=== PATIENT | male | born 1975 | race Caucasian/White ===

== ENCOUNTER 2017-07-03 11:02 | Emergency (ER) | payer MEDICARE, MEDICAID ==
[2017-07-03] MEDS ORDERED: Metoclopramide IV* 5 MG/ML 2 ML VIAL IV ONE (12:25)
[2017-07-03] MEDS ORDERED: Morphine INJ* 4 MG/ML 1 ML SYRINGE (NEW SYRINGE VERSION) IV ONE (12:25)
[2017-07-03] MEDS ORDERED: NS 0.9% 1000 ML* 1,000 ML IV ONE (12:26)
[2017-07-03 12:47] LABS: ABS Basophils 0.1 10^3/ul (0-0.2); ABS Eosinophils 0.1 10^3/ul (0-0.6); ABS Lymphocytes 1.5 10^3/ul (1.0-4.8); ABS Monocytes 0.6 10^3/ul (0-0.8); ABS Neutrophils 15.2 10^3/ul (1.5-7.7); ABS Nucleated RBC 0 10^3/ul; Eosinophil % 0.5 % (0-6); Hematocrit 40 % (42-52); Hemoglobin 13.7 g/dl (14.0-18.0); Lymphocyte % 8.5 % (25-47); Mean Corpuscular HGB Conc 35 g/dl (31-36); Mean Corpuscular Hemoglobin 31 pg (27-31); Mean Corpuscular Volume 89 fL (80-94); Mean Platelet Volume 8 um3 (7.4-10.4); Nucleated Red Blood Cells % 0; Platelet Count 272 10^3/ul (150-450); Red Blood Count 4.43 10^6/ul (4.0-5.4); Red Cell Distribution Width 14 % (10.5-15); White Blood Count 17.6 10^3/ul (3.5-10.8)
[2017-07-03 12:56] LABS: INR 0.88 (0.77-1.02)
[2017-07-03 13:03] LABS: EGFR Non-African American 83.5 (>60)
[2017-07-03] MEDS ORDERED: Magnesium Sulfate 1 GM IV* 1 GM/100 ML BAG IV ONE (13:21)
--- NOTE | 2017-07-03 13:31 | RAD ---
Abdomen pain. Flat and upright views of the abdomen demonstrates no free air. No dilated loops of bowel are noted. There is air in the stomach and colon. No evidence of renal or ureteral calculi is identified. IMPRESSION: No free air or obstruction is noted.
[2017-07-03] MEDS ORDERED: Iohexol 300* (CONTRAST) 10 ML SDV IV ONE (13:53)
[2017-07-03] MEDS ORDERED: LORazepam INJ* 2 MG/ML 1 ML VIAL IV PUSH ONE (14:02)
[2017-07-03 14:24] LABS: Urine Appearance Clear; Urine Blood 1+ (Negative); Urine Color Yellow; Urine Ketones 1+ (Negative); Urine Protein 1+(30 mg/dL) (Negative); Urine Specific Gravity 1.033 (1.010-1.030); Urine Urobilinogen Negative (Negative)
[2017-07-03] MEDS ORDERED: NS 0.9% 1000 ML*IV.FLUID IV ONE (14:41)
[2017-07-03] MEDS ORDERED: Iodixanol* (CONTRAST) 320 MG/ML 100 ML SDV IV ONE (15:11)
--- NOTE | 2017-07-03 15:38 | RAD ---
Indication: Left lower quadrant pain. Contrast: Administered 100.1 ml of VISAPAQUE 320 mg/ml CT of the abdomen and pelvis was performed after oral and IV contrast administration. Coronal and sagittal reconstructed images were obtained. Lung bases demonstrate no pleural fluid, nodules or masses. Heart demonstrates no pericardial effusion. The liver is normal in size. It is diffusely decreased in density consistent with hepatic steatosis. No focal lesions or intrahepatic ductal dilatation is noted. The gallbladder demonstrates no calcified gallstones, pericholecystic fluid or wall thickening. The common duct is not dilated. The pancreas demonstrates no mass or pancreatic duct dilatation. The spleen is normal in size. No adrenal lesions are noted. The kidneys demonstrates no hydronephrosis and demonstrate symmetric nephrograms. No retroperitoneal lymphadenopathy is noted. Celiac axis and superior mesenteric artery is unremarkable. No retroperitoneal adenopathy is noted. No dilated loops of bowel are noted. No evidence of bowel obstruction is noted with contrast in the right colon. Appendix is normal. No pelvic adenopathy is noted. The descending colon demonstrates wall thickening with infiltration of fat and reticulation of fat at the junction between the sigmoid colon and descending colon. Findings are consistent with diverticulitis. No definite diverticular abscess is noted. The urinary bladder is distended. The prostate and seminal vesicles are unremarkable. IMPRESSION: Findings consistent with diverticulitis. No evidence of peridiverticular abscess is noted. Normal appendix.
--- NOTE | 2017-07-03 15:43 | RAD ---
Indication: Abdominal pain. Single frontal view of the chest performed at 1500 hours was reviewed. No prior study is available for comparison. No mediastinal shift is noted. Heart is of normal size and configuration. Lung jang appear clear. IMPRESSION: NO ACTIVE CARDIOPULMONARY DISEASE IS NOTED.
[2017-07-03] MEDS ORDERED: metroNIDAZOLE IV 500 MG/100ML* 500 MG/100 ML BAG IVPB ONE (15:58)
[2017-07-03] MEDS ORDERED: Ciprofloxacin 400MG IVPREMIX(* 400 MG/200 ML BAG IVPB ONE (15:58)
[2017-07-03 19:24] VITALS: BP 152/92
--- NOTE | 2017-07-03 23:19 | ED ---
Yonny Pascual Stephanie, scribed for Cheri Littlejohn MD on 07/03/17 at 1228 . Abdominal Pain/Male - HPI Summary HPI Summary: The pt is a 42 y/o M presenting to the ED with c/o abd pain that began today at 07:00. The abd pain is described as a twisting pain and is located on the LLQ. Symptoms include N/V. The pt states he woke up this morning sick. He did not take his diabetes medicine this morning. The pt states he takes glipizide. - History of Current Complaint Chief Complaint: EDAbdPain Stated Complaint: ABD PAIN Time Seen by Provider: 07/03/17 12:05 Hx Obtained From: Patient Onset/Duration: Sudden Onset, Lasting Hours - 5, Still Present Timing: Constant Severity Currently: Severe Pain Intensity: 9 Pain Scale Used: 0-10 Numeric Location: Discrete At: LLQ Radiates: No Character: Sharp Aggravating Factor(s): Nothing Alleviating Factor(s): Nothing Associated Signs And Symptoms: Positive: Nausea, Vomiting - Allergies/Home Medications Allergies/Adverse Reactions: Allergies Allergy/AdvReac Type Severity Reaction Status Date / Time No Known Allergies Allergy Verified 07/03/17 11:10 PMH/Surg Hx/FS Hx/Imm Hx Endocrine/Hematology History: Reports: Hx Diabetes GI History: Reports: Other GI Disorders - gastroparesis - Surgical History Surgery Procedure, Year, and Place: NONE Infectious Disease History: No Infectious Disease History: Denies: Traveled Outside the [place] in Last 30 Days - Family History Known Family History: Positive: Unknown - The pt denies any fhx. - Social History Occupation: Unemployed Lives: Alone Alcohol Use: None Substance Use Type: Reports: Marijuana Substance Use Comment - Amount & Last Used: few times a week Smoking Status (MU): Never Smoked Tobacco Review of Systems Negative: Fever Positive: Abdominal Pain, Vomiting, Nausea All Other Systems Reviewed And Are Negative: Yes Physical Exam - Summary Physical Exam Summary: Appearance: Ill-appearing, : thrashing in pain, lying uncomfortable on the stretcher. Well-nourished, no fruity odor Skin: Warm, color reflects adequate perfusion Head: Normal Head/Face inspection Eyes: Conjunctiva clear ENT: dry oral mucosa Neck: Supple, no nodes, no JVD. Respiratory: Lungs clear, Normal breath sounds, no respiratory distress Cardio: RRR, No murmur, pulses normal, brisk capillary refill Abdomen: soft, nontender Bowel sounds: diminished bowel sounds Musculoskeletal: Strength Intact/ ROM intact. No calf tenderness. No edema. Neuro: Alert, muscle tone normal, facial symmetry, speech normal, sensory/motor intact Psychological: Normal Triage Information Reviewed: Yes Vital Signs On Initial Exam: Initial Vitals Temp Pulse Resp BP Pulse Ox 96.9 F 100 18 151/100 100 07/03/17 11:06 07/03/17 11:06 07/03/17 11:06 07/03/17 11:06 07/03/17 11:06 Vital Signs Reviewed: Yes Diagnostics - Vital Signs Vital Signs Temp Pulse Resp BP Pulse Ox 07/03/17 12:00 98 163/144 99 07/03/17 11:52 168/98 07/03/17 11:06 96.9 F 100 18 151/100 100 - Laboratory Result Diagrams: 07/03/17 12:34 07/03/17 12:34 Lab Statement: Any lab studies that have been ordered have been reviewed, and results considered in the medical decision making process. - Radiology Abdomen XRay Xray Interpretation: No Acute Changes Radiology Interpretation Completed By: Radiologist - No free air or obstruction is noted. - CT Abdomen/Pelvis CT Interpretation: No Acute Changes CT Interpretation Completed By: Radiologist - Findings consistent with diverticulitis. No evidence of peridiverticular abscess is noted. Normal appendix. CXR CT Interpretation: No Acute Changes CT Interpretation Completed By: Radiologist - NO ACTIVE CARDIOPULMONARY DISEASE IS NOTED. - EKG 13:21 Cardiac Rate: NL EKG Rhythm: Sinus Rhythm - [address] Segment: Non-Specific Ectopy: None EKG Interpretation: nml AVIVCT, nml QTc, and nml axis EKG Comparison: Other - No prior to compare Re-Evaluation - Re-Evaluation First Eval Re-Evaluation Time: 13:00 Change: Unchanged - Pt has settled a bit however, he is still trashing on stretcher. IV is infusing. Has not urinated. XRay is here. Second Eval Re-Evaluation Time: 13:55 Change: Improved - ED physician informed the pt of his current glucose level. Comment: The pt is service connected for anxiety and bipolar disorder. The pt's pain is down to a 4 in severity. He is still hyperventilating. Third Eval Re-Evaluation Time: 17:20 Change: Improved - The pt feels no pain at this time. IV abx are infusing. The pt is calm and agrees with discharge plan. He has an appointment with [facility] tomorrow. Abdominal Pain Fem Course/Dx - Course Course Of Treatment: At 13:02, ED physician is aware of the pts lactate level. The pt has no pain at this time 17:21 and agrees with the plan of discharge. - Diagnoses Provider Diagnoses: Diverticulitis Discharge - Discharge Plan Condition: Stable Disposition: HOME Patient Education Materials: Diverticulitis (ED) Referrals: No Primary Care Phys,NOPCP [Primary Care Provider] - Additional Instructions: Follow up with [facility] doctor for your appointment as scheduled tomorrow. RETURN TO THE ER FOR ANY NEW OR WORSENING SYMPTOMS The documentation as recorded by the Yonny serra Stephanie accurately reflects the service I personally performed and the decisions made by , Cheri Littlejohn MD.
== END 2017-07-03 19:24 | disposition home or self-care (01) ==
LOC: ED 11:02
DX: K57.92 Diverticulitis of intestine, part unspecified, without perforation or abscess without bleeding (principal); E11.9 Type 2 diabetes mellitus without complications; K31.84 Gastroparesis
CPT/HCPCS: 36415; 71045; 74018; 74177; 80053; 81003; 81015; 82150; 82550; 82803; 83605; 83690; 83735; 84484; 85025; 85610; 85652; 86140; 87502; 93005; 96360; 96374; 96375; 99284; J0744; J2060; J2270; J2765; J3475; J3490; Q9967